=== PATIENT | female | born 1930 | race Caucasian/White ===

== ENCOUNTER 2017-06-06 18:45 | Emergency (ER) | payer MEDICARE ==
[2017-06-06] MEDS ORDERED: NS 0.9% 1000 ML* 1,000 ML IV ONE (19:35)
[2017-06-06] MEDS ORDERED: Meclizine TAB* 12.5 MG PO ONE (19:55)
[2017-06-06] MEDS ORDERED: diPHENhydraMINE IV* 50 MG/ML 1 ml VIAL (BENADRYL) IV ONE (19:55)
[2017-06-06 20:00] LABS: ABS Basophils 0.1 10^3/ul (0-0.2); ABS Eosinophils 0.2 10^3/ul (0-0.6); ABS Lymphocytes 2.3 10^3/ul (1.0-4.8); ABS Monocytes 0.7 10^3/ul (0-0.8); ABS Neutrophils 3.6 10^3/ul (1.5-7.7); ABS Nucleated RBC 0 10^3/ul; Eosinophil % 2.6 % (0-6); Hematocrit 40 % (35-47); Hemoglobin 13.5 g/dl (12.0-16.0); Lymphocyte % 33.6 % (25-47); Mean Corpuscular HGB Conc 34 g/dl (31-36); Mean Corpuscular Hemoglobin 29 pg (27-31); Mean Corpuscular Volume 85 fL (80-97); Mean Platelet Volume 6.8 um3 (7.4-10.4); Nucleated Red Blood Cells % 0; Platelet Count 262 10^3/ul (150-450); Red Blood Count 4.68 10^6/ul (4.0-5.4); Red Cell Distribution Width 15 % (10.5-15); White Blood Count 6.9 10^3/ul (3.5-10.8)
[2017-06-06 20:07] LABS: Urine Appearance Clear; Urine Blood Negative (Negative); Urine Color Yellow; Urine Ketones Negative (Negative); Urine Protein 1+(30 mg/dL) (Negative); Urine Specific Gravity 1.013 (1.010-1.030); Urine Urobilinogen Negative (Negative)
[2017-06-06 20:15] LABS: INR 0.94 (0.77-1.02)
[2017-06-06 21:03] VITALS: BP 184/74
--- NOTE | 2017-06-06 21:13 | RAD ---
Indication: Vertigo. CT of the brain was performed without IV contrast. Ventricular structures are midline. No midline shift is noted. The extraction spaces are unremarkable. There is no evidence of intracranial mass or hemorrhage. No other high or low density lesions are identified. Mastoid air cells and paranasal sinuses are otherwise unremarkable. IMPRESSION: No intracranial mass or hemorrhage is noted.
--- NOTE | 2017-06-07 01:58 | ED ---
Leah Silva Rebecca, scribed for Castro Grier MD on 06/06/17 at 1950 . Hypertension - HPI Summary HPI Summary: Pt is an 87 y/o F BIBA who presents to ED c/o sudden onset dizziness. Dizziness described as vertigo with rotational dizziness and began while trying to get up from lying on the couch. Pt felt as though she may fall over. Sx aggravated by sitting up. Denies vomiting. No recent head trauma. Takes 81 mg ASA. - History of Current Complaint Chief Complaint: EDHypertension Stated Complaint: HYPERTENSION Time Seen by Provider: 06/06/17 19:36 Hx Obtained From: Patient Onset/Duration: Still Present Aggravating Factor(s): Other: - Sitting up Alleviating Factor(s): Nothing Associated Signs & Symptoms: Dizziness - Allergies/Home Medications Allergies/Adverse Reactions: Allergies Allergy/AdvReac Type Severity Reaction Status Date / Time ampicillin Allergy Rash Verified 06/06/17 19:22 Cephalosporins Allergy Rash Verified 06/06/17 19:22 codeine Allergy Rash Verified 06/06/17 19:22 Penicillins Allergy Unknown Verified 06/06/17 19:22 Reaction Details Sulfa (Sulfonamide Allergy Rash Verified 06/06/17 19:22 Antibiotics) Bee sting Allergy Severe Anaphylatic Uncoded 06/06/17 19:22 Shock Seasonal Pollens Allergy Severe Wheezing Uncoded 06/06/17 19:22 CILLINS ANTIBIOTICS Allergy Unknown Unknown Uncoded 06/06/17 19:22 Reaction Details PMH/Surg Hx/FS Hx/Imm Hx Endocrine/Hematology History: Reports: Hx Thyroid Disease Denies: Hx Diabetes Cardiovascular History: Reports: Hx Hypercholesterolemia, Hx Hypertension Denies: Hx Pacemaker/ICD Respiratory History: Reports: Hx Chronic Bronchitis, Hx Pneumonia, Hx Seasonal Allergies History: Denies: Hx Renal Disease Musculoskeletal History: Reports: Hx Arthritis, Hx Back Problems - laminectomy 02/2013 Sensory History: Reports: Hx Cataracts, Hx Contacts or Glasses Denies: Hx Hearing Aid Opthamlomology History: Reports: Hx Cataracts, Hx Contacts or Glasses Neurological History: Reports: Other Neuro Impairments/Disorders - PAIN CLINIC PT Psychiatric History: Reports: Hx Anxiety - PRN MEDICATION, Hx Panic Disorder - Cancer History Cancer Type, Location and Year: Melanoma. Back left shoulder scar. ( WIDE EXCISION - NO FURTHER TREATMENT NEEDED) Hx Chemotherapy: No Hx Radiation Therapy: No - Surgical History Surgery Procedure, Year, and Place: GALLBLADDER,CATARACTS, BREAST BIOPSY, TRIGGER FINGER. laminectomy 02/2013. MELONOMA REMOVED FROM BACK - 1983 Hx Anesthesia Reactions: No - Immunization History Date of Tetanus Vaccine: Unknown Infectious Disease History: No Infectious Disease History: Denies: Traveled Outside the [place] in Last 30 Days - Family History Known Family History: Positive: Hypertension, Other - CVA Negative: Cardiac Disease - Social History Alcohol Use: Rare Alcohol Amount: 1-2 PER WEEK Substance Use Type: Reports: None Smoking Status (MU): Former Smoker Type: Cigarettes Amount Used/How Often: 1-2 PPD X 20 +? YEARS OFF AND ON Length of Time of Smoking/Using Tobacco: 20 YEARS AGO Have You Smoked in the Last Year: No Review of Systems Negative: Fever Negative: Vomiting Neurological: Other - Dizziness All Other Systems Reviewed And Are Negative: Yes Physical Exam - Summary Physical Exam Summary: Appearance: Well appearing, no pain distress Skin: warm, dry, reflects adequate perfusion, big soft tissue void in her posterior scapula area Head/face: normal Eyes: EOMI, PERRL, no nystagmus ENT: normal, mucous membranes moist Neck: supple, non-tender Respiratory: CTA, breath sounds present Cardiovascular: RRR, pulses symmetrical and full Abdomen: non-tender, soft Bowel Sounds: present Musculoskeletal: normal, strength/ROM intact Neuro: Hallpike to R and sitting up causes sx/nystagmus, sensory motor intact, A &Ox3. CN intact. No ataxia. Triage Information Reviewed: Yes Vital Signs On Initial Exam: Initial Vitals Temp Pulse Resp BP Pulse Ox 97.5 F 59 17 218/106 99 06/06/17 19:00 06/06/17 19:00 06/06/17 19:00 06/06/17 19:00 06/06/17 19:00 Vital Signs Reviewed: Yes - [place] Coma Scale [place] Coma Scale Comments: 15 Diagnostics - Vital Signs Vital Signs Temp Pulse Resp BP Pulse Ox 06/06/17 19:00 97.5 F 59 17 218/106 99 - Laboratory Lab Results: Lab Results 06/06/17 06/06/17 06/06/17 Range/Units 19:45 19:45 19:45 WBC 6.9 (3.5-10.8) 10^3/ul RBC 4.68 (4.0-5.4) 10^6/ul Hgb 13.5 (12.0-16.0) g/dl Hct 40 (35-47) % MCV 85 (80-97) fL MCH 29 (27-31) pg MCHC 34 (31-36) g/dl RDW 15 (10.5-15) % Plt Count 262 (150-450) 10^3/ul MPV 6.8 L (7.4-10.4) um3 Neut % (Auto) 52.7 (38-83) % Lymph % (Auto) 33.6 (25-47) % Gooding % (Auto) 10.3 H (0-7) % Eos % (Auto) 2.6 (0-6) % Baso % (Auto) 0.8 (0-2) % Absolute Neuts (auto) 3.6 (1.5-7.7) 10^3/ul Absolute Lymphs (auto) 2.3 (1.0-4.8) 10^3/ul Absolute Monos (auto) 0.7 (0-0.8) 10^3/ul Absolute Eos (auto) 0.2 (0-0.6) 10^3/ul Absolute Basos (auto) 0.1 (0-0.2) 10^3/ul Absolute Nucleated RBC 0 10^3/ul Nucleated RBC % 0 INR (Anticoag Therapy) (0.77-1.02) Sodium 139 (139-145) mmol/L Potassium 4.1 (3.5-5.0) mmol/L Chloride 106 (101-111) mmol/L Carbon Dioxide 25 (22-32) mmol/L Anion Gap 8 (2-11) mmol/L BUN 17 (6-24) mg/dL Creatinine 0.85 (0.51-0.95) mg/dL Est GFR ( Amer) 81.0 (>60) Est GFR (Non-Af Amer) 63.0 (>60) BUN/Creatinine Ratio 20.0 (8-20) Glucose 102 H (70-100) mg/dL Lactic Acid 1.3 (0.5-2.0) mmol/L Calcium 9.3 (8.6-10.3) mg/dL Magnesium 1.8 L (1.9-2.7) mg/dL Total Bilirubin 0.40 (0.2-1.0) mg/dL AST 28 (13-39) U/L ALT 20 (7-52) U/L Alkaline Phosphatase 57 (34-104) U/L Troponin I 0.01 (<0.04) ng/mL Total Protein 7.4 (6.4-8.9) g/dL Albumin 3.9 (3.2-5.2) g/dL Globulin 3.5 (2-4) g/dL Albumin/Globulin Ratio 1.1 (1-3) TSH 0.34 (0.34-5.60) mcIU/mL Urine Color Urine Appearance Urine pH (5-9) Ur Specific Whitmer (1.010-1.030) Urine Protein (Negative) Urine Ketones (Negative) Urine Blood (Negative) Urine Nitrate (Negative) Urine Bilirubin (Negative) Urine Urobilinogen (Negative) Ur Leukocyte Esterase (Negative) Urine WBC (Auto) (Absent) Urine RBC (Auto) (Absent) Ur Squamous Epith Cells (Absent) Urine Bacteria (Absent) Urine Glucose (Negative) 06/06/17 06/06/17 Range/Units 19:45 19:50 WBC (3.5-10.8) 10^3/ul RBC (4.0-5.4) 10^6/ul Hgb (12.0-16.0) g/dl Hct (35-47) % MCV (80-97) fL MCH (27-31) pg MCHC (31-36) g/dl RDW (10.5-15) % Plt Count (150-450) 10^3/ul MPV (7.4-10.4) um3 Neut % (Auto) (38-83) % Lymph % (Auto) (25-47) % Gooding % (Auto) (0-7) % Eos % (Auto) (0-6) % Baso % (Auto) (0-2) % Absolute Neuts (auto) (1.5-7.7) 10^3/ul Absolute Lymphs (auto) (1.0-4.8) 10^3/ul Absolute Monos (auto) (0-0.8) 10^3/ul Absolute Eos (auto) (0-0.6) 10^3/ul Absolute Basos (auto) (0-0.2) 10^3/ul Absolute Nucleated RBC 10^3/ul Nucleated RBC % INR (Anticoag Therapy) 0.94 (0.77-1.02) Sodium (139-145) mmol/L Potassium (3.5-5.0) mmol/L Chloride (101-111) mmol/L Carbon Dioxide (22-32) mmol/L Anion Gap (2-11) mmol/L BUN (6-24) mg/dL Creatinine (0.51-0.95) mg/dL Est GFR ( Amer) (>60) Est GFR (Non-Af Amer) (>60) BUN/Creatinine Ratio (8-20) Glucose (70-100) mg/dL Lactic Acid (0.5-2.0) mmol/L Calcium (8.6-10.3) mg/dL Magnesium (1.9-2.7) mg/dL Total Bilirubin (0.2-1.0) mg/dL AST (13-39) U/L ALT (7-52) U/L Alkaline Phosphatase (34-104) U/L Troponin I (<0.04) ng/mL Total Protein (6.4-8.9) g/dL Albumin (3.2-5.2) g/dL Globulin (2-4) g/dL Albumin/Globulin Ratio (1-3) TSH (0.34-5.60) mcIU/mL Urine Color Yellow Urine Appearance Clear Urine pH 5.0 (5-9) Ur Specific Whitmer 1.013 (1.010-1.030) Urine Protein 1+(30 mg/dl) A (Negative) Urine Ketones Negative (Negative) Urine Blood Negative (Negative) Urine Nitrate Negative (Negative) Urine Bilirubin Negative (Negative) Urine Urobilinogen Negative (Negative) Ur Leukocyte Esterase Negative (Negative) Urine WBC (Auto) Absent (Absent) Urine RBC (Auto) Absent (Absent) Ur Squamous Epith Cells Present A (Absent) Urine Bacteria Absent (Absent) Urine Glucose Negative (Negative) Result Diagrams: 06/06/17 19:45 06/06/17 19:45 Lab Statement: Any lab studies that have been ordered have been reviewed, and results considered in the medical decision making process. - CT Brain CT CT Interpretation: No Acute Changes - No intracranial mass or hemorrhage is noted. ED physician reviewed this radiology report. CT Interpretation Completed By: Radiologist - EKG 2133 Cardiac Rate: Bradycardia - 59 bpm EKG Rhythm: Sinus Bradycardia EKG Interpretation: Nl axis, nonspecific flattening of ST, nl interval Re-Evaluation - Re-Evaluation First Eval Re-Evaluation Time: 21:19 Comment: Pt is feeling better. Need to get her up and walking. Second Eval Re-Evaluation Time: 21:26 Comment: When walking, the pt has no ataxia and no ongoing vertigo. Third Eval Re-Evaluation Time: 21:46 Comment: Discussing results, D/C plan and answering questions. Hypertension Course/Dx - Course Assessment/Plan: Pt is an 87 y/o F BIBA who presents to ED c/o sudden onset dizziness, described as vertigo with rotational dizziness. Began while trying to get up from lying on the couch. Pt felt as though she may fall over. Sx aggravated by sitting up. Denies vomiting. No recent head trauma. Takes 81 mg ASA. Blood work and UA were done. Troponin of 0.01. Brain CT reveals no acute findings. When walking, the pt has no ataxia and no ongoing vertigo. EKG is sinus raj. In the ED course, pt received benadryl, antivert and fluids which improved her symptoms. Pt will be D/C to home with Dx of positional vertigo with Rx for meclizine. She understands and agrees. Allergies noted. - Diagnoses Differential Diagnosis/HQI PQRI: Hypertension, Hypertensive Crisis, Other - BPV , post circ cva, labryinthitis, ear infection Provider Diagnoses: Positional vertigo Discharge - Sign-Out/Discharge Documenting (check all that apply): Discharge/Admit/Transfer - Discharge - Discharge Plan Condition: Improved Disposition: HOME Prescriptions: Meclizine HCl [Motion Sickness II] 25 mg PO TID PRN #30 tablet PRN Reason: Vertigo Patient Education Materials: Vertigo (ED) Referrals: Del Yepez DO [Primary Care Provider] - Additional Instructions: Stay well hydrated. Do not drive until well. Return if worse, numbness/weakenss, new symptoms or other concerns. Follow up with your doctor in the morning. - Billing Disposition and Condition Condition: IMPROVED Disposition: HOME The documentation as recorded by the Leah delong Rebecca accurately reflects the service I personally performed and the decisions made by me, Castro Grier MD.
== END 2017-06-06 21:52 | disposition home or self-care (01) ==
LOC: ED 18:45
DX: H81.10 Benign paroxysmal vertigo, unspecified ear (principal); R00.1 Bradycardia, unspecified; Z79.82 Long term (current) use of aspirin; E07.9 Disorder of thyroid, unspecified; I10 Essential (primary) hypertension; E78.00 Pure hypercholesterolemia, unspecified; F41.0 Panic disorder [episodic paroxysmal anxiety]; Z85.820 Personal history of malignant melanoma of skin; Z88.1 Allergy status to other antibiotic agents; Z88.5 Allergy status to narcotic agent; Z88.0 Allergy status to penicillin; Z88.2 Allergy status to sulfonamides; Z87.891 Personal history of nicotine dependence
CPT/HCPCS: 36415; 70450; 80053; 81003; 81015; 83605; 83735; 84443; 84484; 85025; 85610; 93005; 96361; 96374; 99283; A9270-GY; J1200